=== PATIENT | female | born 1985 | race American Indian/Alaskan Native ===

== ENCOUNTER 2017-08-17 14:13 | Inpatient (IN) | payer OTHER ==
[~2017-08-17] VITALS: Ht 177.8 cm; Wt 72.6 kg
[2017-08-17] MEDS ORDERED: PRENATAL 19 TA1 EACH PO (15:04)
== END 2017-08-17 19:14 | disposition left against medical advice (07) | DRG 781 ==
LOC: LDR 14:13
PROC: 4A1HXCZ Monitoring of Products of Conception, Cardiac Rate, External Approach (ICD-10-PCS; principal; 2017-08-17)
DX: O26.892 Other specified pregnancy related conditions, second trimester (principal); R19.7 Diarrhea, unspecified; R10.13 Epigastric pain; Z3A.27 27 weeks gestation of pregnancy